=== PATIENT | female | born 1940 | race Caucasian/White ===

== ENCOUNTER 2016-07-03 18:18 | Inpatient (IN) | payer MEDICARE, OTHER ==
[~2016-07-03] VITALS: Ht 165.1 cm; Wt 105.1 kg
[2016-07-03 18:19] VITALS: BP 144/84; PULSE 101; RESP 15; TEMP 98.2; O2SAT 98
[2016-07-03] MEDS ORDERED: LOSA50TA PO (18:31)
[2016-07-03] MEDS ORDERED: ATOR40TA16 PO (18:31)
[2016-07-03] MEDS ORDERED: SYMB160A INH (18:31)
--- NOTE | 2016-07-03 18:49 | PD ---
HPI Chief Complaint: Complaint Time Seen by Provider: 18:47 Travel History International Travel<30 days: No Contact w/Intl Traveler<30days: No Traveled to known affect area: No History of Present Illness HPI 75-year-old female presents to the emergency department for evaluation of right low back pain and urinary symptoms that started 2 days ago. Patient reports urinary urgency and frequency as well as mild dysuria. She denies any fevers or chills. She does state she took one Cipro and then had dry heaves. Patient denies any constipation or diarrhea. She does report a history of hypertension , hyperlipidemia, frequent UTIs. Patient states this is her typical symptoms of UTI. Patient does report allergy to codeine and sulfa. PFSH Past Medical History Asthma: Yes High Cholesterol: Yes Hypertension: Yes Respiratory: Yes (ASTHMA) Tetanus Vaccination: > 5 Years Influenza Vaccination: No ?: Not Past Surgical History Hysterectomy: Yes Social History Alcohol Use: No Tobacco Use: No Substance Use: No Allergies-Medications (Allergen,Severity, Reaction): Coded Allergies: Codeine (Verified Allergy, Severe, DIZZINESS, 07/03/16) Sulfa (Verified Allergy, Severe, DIZZINESS, 07/03/16) Reported Meds & Prescriptions Reported Meds & Active Scripts Active Reported Atorvastatin (Atorvastatin Calcium) 40 Mg Tab 40 Mg PO HS Losartan (Losartan Potassium) 50 Mg Tab 50 Mg PO DAILY Symbicort Inh (Budesonide/Formoterol Fumarate) 160-4.5 Mcg/Act Aero 1 Puff INH Q12HR Review of Systems Except as stated in HPI: all other systems reviewed are Neg Physical Exam Narrative GENERAL: Well-developed well-nourished elderly female patient, ambulatory. Afebrile. SKIN: Warm and dry. HEAD: Normocephalic. Atraumatic. EYES: No scleral icterus. No injection or drainage. NECK: Supple, trachea midline. No JVD or lymphadenopathy. CARDIOVASCULAR: Regular rate and rhythm without murmurs, gallops, or rubs. RESPIRATORY: Breath sounds equal bilaterally. No accessory muscle use. Lung sounds are clear to auscultation. GASTROINTESTINAL: Abdomen soft, non-tender, nondistended. MUSCULOSKELETAL: No cyanosis, or edema. BACK: Nontender without obvious deformity. No CVA tenderness. Data Data Last Documented VS Vital Signs Date Time Temp Pulse Resp B/P Pulse Ox O2 Delivery O2 Flow Rate FiO2 2/4/17 20:58 86 17 137/78 99 Room Air 07/03/16 18:19 98.2 Orders Complete Blood Count With Diff (07/03/16 18:46) Comprehensive Metabolic Panel (07/03/16 18:46) Urinalysis - C+S If Indicated (07/03/16 18:46) Ct Abd/Pel W Iv Contrast(Rout) (07/03/16 ) Sodium Chlor 0.9% 1000 Ml Inj (Ns 1000 M (07/03/16 19:30) Blood Culture (07/03/16 19:23) Lactic Acid Sepsis Protocol (07/03/16 19:24) Urine Culture (07/03/16 06:50) Morphine Inj (Morphine Inj) (07/03/16 20:00) Ondansetron Inj (Zofran Inj) (07/03/16 20:00) Iohexol 350 Inj (Omnipaque 350 Inj) (07/03/16 20:16) Sodium Chlor 0.9% 1000 Ml Inj (Ns 1000 M (07/03/16 20:45) Piperacil-Tazo 4.5 Gm Premix (Zosyn 4.5 (07/03/16 20:31) Labs Laboratory Tests Test 07/03/16 07/03/16 06:50 19:45 White Blood Count 19.8 TH/MM3 Red Blood Count 4.15 MIL/MM3 Hemoglobin 12.9 GM/DL Hematocrit 37.2 % Mean Corpuscular Volume 89.7 FL Mean Corpuscular Hemoglobin 31.0 PG Mean Corpuscular Hemoglobin 34.5 % Concent Red Cell Distribution Width 13.1 % Platelet Count 243 TH/MM3 Mean Platelet Volume 9.8 FL Neutrophils (%) (Auto) 85.6 % Lymphocytes (%) (Auto) 5.7 % Monocytes (%) (Auto) 7.6 % Eosinophils (%) (Auto) 0.9 % Basophils (%) (Auto) 0.2 % Neutrophils # (Auto) 17.0 TH/MM3 Lymphocytes # (Auto) 1.1 TH/MM3 Monocytes # (Auto) 1.5 TH/MM3 Eosinophils # (Auto) 0.2 TH/MM3 Basophils # (Auto) 0.0 TH/MM3 CBC Comment DIFF FINAL Differential Comment Urine Color YELLOW Urine Turbidity HAZY Urine pH 5.5 Urine Specific [place] 1.021 Urine Protein 30 mg/dL Urine Glucose (UA) NEG mg/dL Urine Ketones NEG mg/dL Urine Occult Blood SMALL Urine Nitrite NEG Urine Bilirubin NEG Urine Urobilinogen LESS THAN 2.0 MG/DL Urine Leukocyte Esterase LARGE Urine RBC 12 /hpf Urine WBC /hpf Urine WBC Clumps FEW Urine Squamous Epithelial 1 /hpf Cells Urine Bacteria RARE /hpf Urine Hyaline Casts 1 /lpf Urine Mucus FEW /lpf Microscopic Urinalysis Comment CULTURE INDICATED Sodium Level 135 MEQ/L Potassium Level 3.6 MEQ/L Chloride Level 99 MEQ/L Carbon Dioxide Level 27.2 MEQ/L Anion Gap 9 MEQ/L Blood Urea Nitrogen 21 MG/DL Creatinine 1.20 MG/DL Estimat Glomerular Filtration 44 ML/MIN Rate Random Glucose 137 MG/DL Calcium Level 8.7 MG/DL Total Bilirubin 0.7 MG/DL Aspartate Amino Transf 29 U/L (AST/SGOT) Alanine Aminotransferase 43 U/L (ALT/SGPT) Alkaline Phosphatase 96 U/L Total Protein 7.8 GM/DL Albumin 3.7 GM/DL Lactic Acid Level 0.6 mmol/L MDM Medical Decision Making Medical Screen Exam Complete: Yes Emergency Medical Condition: Yes Medical Record Reviewed: Yes Interpretation(s) CT abdomen/pelvis - CONCLUSION: Slight decrease in enhancement of the right kidney relative to the left with some mild right perinephric stranding and mild dilatation of the right proximal and mid ureter. No definite calculus is identified. Differential diagnosis includes a right-sided pyelonephritis or possibly a mild obstructive uropathy secondary to a non-radiopaque calculus. Differential Diagnosis UTI versus pyelonephritis versus dysuria Narrative Course 75-year-old female presents to the emergency department for evaluation of urinary symptoms for 2 days. CBC, CMP are ordered and pending. UA is ordered and pending. CBC shows leukocytosis of 19.8, neutrophilia 85.6. CMP shows elevated B and 21/ 1.20, no acute abnormality. UA shows large leukocyte esterase, innumerable WBC , few wbc clumps. CT abdomen/pelvis with IV contrast is ordered and pending; blood cultures 1 is ordered and pending; lactic acid is ordered and pending. CT abdomen/pelvis shows llight decrease in enhancement of the right kidney relative to the left with some mild right perinephric stranding and mild dilatation of the right proximal and mid ureter. No definite calculus is identified. Differential diagnosis includes a right-sided pyelonephritis or possibly a mild obstructive uropathy secondary to a non-radiopaque calculus. Lactic acid is 0.6. Patient was given Zosyn 4.5gm IV. Dr. Bear accepted admission. Sepsis Criteria SIRS Criteria (2 or more): Heart rate over 90, WBC > 53451, < 4000 or > 10% bands Sepsis Criteria (SIRS+source): Infect source susp/known Diagnosis Primary Impression: Pyelonephritis Admitting Information Admitting Physician Requests: Admit Danica Serna Jul 03, 2016 18:49
[2016-07-03 18:56] VITALS: BP 134/76; PULSE 95; RESP 18; O2SAT 98
[2016-07-03 19:05] LABS: BASOPHIL % 0.2 % (0.0-2.0); EOSINOPHIL # 0.2 TH/MM3 (0-0.4); EOSINOPHIL % 0.9 % (0.0-4.0); HEMATOCRIT 37.2 % (35.0-46.0); HEMO FLAGS DIFF FINAL; LYMPH % 5.7 % (9.0-44.0); LYMPHOCYTE # 1.1 TH/MM3 (1.0-4.8); MEAN CELL VOLUME 89.7 FL (80.0-100.0); MEAN CORPUSCULAR HGB CONC 34.5 % (32.0-36.0); MONO % 7.6 % (0.0-8.0); NEUT % 85.6 % (16.0-70.0); PLATELET COUNT 243 TH/MM3 (150-450); RED BLOOD COUNT 4.15 MIL/MM3 (4.00-5.30); RED CELL DISTRIBUTION WIDTH 13.1 % (11.6-17.2); WHITE BLOOD COUNT 19.8 TH/MM3 (4.0-11.0)
[2016-07-03] MEDS ORDERED: SODIUM CHLOR 0.9% 1000 ML INJ 1,000 ML IV ONE ×2 (19:30→20:45)
[2016-07-03 19:32] LABS: BACTERIA, URINE RARE /hpf; BLOOD, URINE SMALL (NEG); COMMENT (UR) CULTURE INDICATED; CULTURE IF INDICATED CULTURE INDICATED; GLUCOSE,URINE NEG (NEG); HYALINE CAST, URINE 1 /lpf (RARE); KETONE, URINE NEG (NEG); MUCUS URINE FEW /lpf (OCC); NITRITE,URINE NEG (NEG); PH, URINE 5.5 (5.0-8.5); SQUAMOUS EPITHELIAL CELL URINE 1 /hpf (0-5); URINE COLOR YELLOW (YELLW/STRAW)
[2016-07-03 19:33] LABS: ANION GAP 9 MEQ/L (5-15); AST (GOT) 29 U/L (15-37); BICARBONATE 27.2 MEQ/L (21.0-32.0); BLOOD UREA NITROGEN 21 MG/DL (7-18); CHLORIDE 99 MEQ/L (98-107); GLOMERULAR FILTRATION RATE 44 ML/MIN (>89); POTASSIUM 3.6 MEQ/L (3.5-5.1); SODIUM (NA) 135 MEQ/L (136-145)
[2016-07-03 19:37] LABS: ALKALINE PHOSPHATASE 96 U/L (45-117); ALT (GPT) 43 U/L (10-53); TOTAL BILIRUBIN ADULT 0.7 MG/DL (0.2-1.0)
[2016-07-03] MEDS ORDERED: ONDANSETRON HCL 4 MG/2 ML VIAL IV PUSH ONE (20:00)
[2016-07-03] MEDS ORDERED: MORPHINE SULFATE 4 MG/ML INJ IV PUSH ONE (20:00)
[2016-07-03] MEDS ORDERED: IOHEXOL 350 MG/ML 10 ML VIAL (for RAD DIAG) IV ONE (20:16)
[2016-07-03] MEDS ORDERED: PIPERACIL-TAZO 4.5 GM PREMIX 100 ML IV STA (20:31)
[2016-07-03 20:58] VITALS: BP 137/78; PULSE 86; RESP 17; O2SAT 99
--- NOTE | 2016-07-03 21:23 | RADRPT ---
EXAM DATE/TIME: 07/03/2016 20:08 [place] COMPARISON: No previous studies available for comparison. INDICATIONS : Right lateral abdominal pain radiating to lower back with dysuria. IV CONTRAST: 90 cc Omnipaque 350 (iohexol) IV ORAL CONTRAST: No oral contrast ingested. RADIATION DOSE: 13.61 CTDIvol (mGy) MEDICAL HISTORY : Hypertension. Asthma. SURGICAL HISTORY : Hysterectomy. ENCOUNTER: Initial ACUITY: 1 day PAIN SCALE: 5/10 LOCATION: Right lateral TECHNIQUE: Volumetric scanning of the abdomen and pelvis was performed. Using automated exposure control and ad justment of the mA and/or kV according to patient size, radiation dose was kept as low as reasonably achievable to obtain optimal diagnostic quality images. FINDINGS: Limited bases are clear. Large hiatal hernia. Fatty liver. Spleen, adrenals, left kidney and pancreas unremarkable. 3.5 cm cyst lower pole right kidney. The right kidney also demonstrates some delayed c ontrast opacification with some right-sided perinephric stranding. The right ureter is mildly dilated in the proximal and midportion. The distal portion is not clearly seen but no definite ureteral calc ulus is identified. There is mild constipation. There is colonic diverticulosis without evidence for diverticulitis. No o bstruction, free fluid or free air. Small fat containing umbilical hernia. CONCLUSION: Slight decrease in enhancement of the right kidney relative to the left with some mild right perineph diony stranding and mild dilatation of the right proximal and mid ureter. No definite calculus is ident ified. Differential diagnosis includes a right-sided pyelonephritis or possibly a mild obstructive ur opathy secondary to a non-radiopaque calculus. Chad Tony MD on July 03, 2016 at 21:14 Board Certified Radiologist. This report was verified electronically.
--- NOTE | 2016-07-03 21:52 | HHI.HP ---
[facility] Admission Diagnosis pyelonephritis Diagnoses: (1) Sepsis Diagnosis: Principal (2) UTI (urinary tract infection) Diagnosis: Principal (3) Renal insufficiency Diagnosis: Principal (4) HTN (hypertension) Diagnosis: Principal Travel History International Travel<30 Days: No Contact w/Intl Traveler <30 Da: No Traveled to Known Affected Are: No History of Present Illness This is a 75-year-old female with a PMH of HTN, Hyperlipidemia and Asthma who is brought to the ER with complaints of right-sided back pain and dysuria x2 days. States symptoms similar to previous episodes of UTI. Denies fever, chills, nausea, vomiting or diarrhea. On arrival, BP 144/84, HR 101, O2 sat 98 % on RA, Afebrile. WBC 19.8. Creatinine 1.20, no previous/for comparison. UA with UTI. CT Abd/Pelvis w/ decreased enhancement of right kidney relative to the left with mild right perinephric stranding and mild dilatation of right proximal and mid ureter, likely pyelonephritis vs obstructive uropathy from non- radiopaque stone. S/p Blood Cultures, Zosyn IV in ER. Review of Systems Other ROS: 14 point review of systems otherwise negative. Past Family Social History Past Medical History PMH: HTN, Hyperlipidemia and Asthma Past Surgical History PAST SURGICAL HISTORY: Hysterectomy Allergies: Coded Allergies: Codeine (Verified Allergy, Severe, DIZZINESS, 07/03/16) Sulfa (Verified Allergy, Severe, DIZZINESS, 07/03/16) Family History PAST FAMILY HISTORY: Reviewed. No h/o DM or CAD Social History PAST SOCIAL HISTORY: Negative for alcohol, tobacco or drugs. Physical Exam Vital Signs Vital Signs Date Time Temp Pulse Resp B/P Pulse Ox O2 Delivery O2 Flow Rate FiO2 07/03/16 20:58 86 17 137/78 99 Room Air 07/03/16 18:56 95 18 134/76 98 Room Air 07/03/16 18:19 98.2 101 15 144/84 98 Physical Exam PE: GENERAL: Extremely pleasant elderly white female in no acute distress. HEENT: PERRLA, EOMI. No scleral icterus or conjunctival pallor. No lid lag or facial droop. CARDIOVASCULAR: Regular rate and rhythm. No obvious murmurs to auscultation. No chest tenderness to palpation. RESPIRATORY: No obvious rhonchi or wheezing. Clear to auscultation. Breath sounds equal bilaterally. GASTROINTESTINAL: Abdomen soft, non-tender, nondistended. BS normal. MUSCULOSKELETAL: Extremities without clubbing, cyanosis, or edema. No obvious deformities. NEUROLOGICAL: Awake, alert and oriented x4. No focal neurologic deficits. Moving both upper and lower extremities spontaneously. Laboratory Laboratory Tests Test 07/03/16 07/03/16 06:50 19:45 White Blood Count 19.8 Red Blood Count 4.15 Hemoglobin 12.9 Hematocrit 37.2 Mean Corpuscular Volume 89.7 Mean Corpuscular Hemoglobin 31.0 Mean Corpuscular Hemoglobin 34.5 Concent Red Cell Distribution Width 13.1 Platelet Count 243 Mean Platelet Volume 9.8 Neutrophils (%) (Auto) 85.6 Lymphocytes (%) (Auto) 5.7 Monocytes (%) (Auto) 7.6 Eosinophils (%) (Auto) 0.9 Basophils (%) (Auto) 0.2 Neutrophils # (Auto) 17.0 Lymphocytes # (Auto) 1.1 Monocytes # (Auto) 1.5 Eosinophils # (Auto) 0.2 Basophils # (Auto) 0.0 CBC Comment DIFF FINAL Differential Comment Urine Color YELLOW Urine Turbidity HAZY Urine pH 5.5 Urine Specific [place] 1.021 Urine Protein 30 Urine Glucose (UA) NEG Urine Ketones NEG Urine Occult Blood SMALL Urine Nitrite NEG Urine Bilirubin NEG Urine Urobilinogen LESS THAN 2.0 Urine Leukocyte Esterase LARGE Urine RBC 12 Urine WBC Urine WBC Clumps FEW Urine Squamous Epithelial 1 Cells Urine Bacteria RARE Urine Hyaline Casts 1 Urine Mucus FEW Microscopic Urinalysis Comment CULTURE INDICATED Sodium Level 135 Potassium Level 3.6 Chloride Level 99 Carbon Dioxide Level 27.2 Anion Gap 9 Blood Urea Nitrogen 21 Creatinine 1.20 Estimat Glomerular Filtration 44 Rate Random Glucose 137 Calcium Level 8.7 Total Bilirubin 0.7 Aspartate Amino Transf 29 (AST/SGOT) Alanine Aminotransferase 43 (ALT/SGPT) Alkaline Phosphatase 96 Total Protein 7.8 Albumin 3.7 Lactic Acid Level 0.6 Date/Time Procedure Status Source Growth 07/03/16 19:45 Aerobic Blood Culture Received Blood Peripheral Pending 07/03/16 19:45 Anaerobic Blood Culture Received Blood Peripheral Pending 07/03/16 06:50 Urine Culture Received Urine Clean Catch Pending Result Diagram: 07/03/1650 07/03/16649 Assessment and Plan Problem List: (1) Sepsis ICD Code: A41.9 Status: Acute (2) UTI (urinary tract infection) ICD Code: N39.0 Status: Acute (3) Renal insufficiency ICD Code: N28.9 Status: Acute (4) HTN (hypertension) ICD Code: I10 Status: Acute Assessment and Plan A/P: 1. Sepsis: HR 101, WBC 19.8, Source-UTI. S/p Blood/Urine Cultures, Zosyn IV in ER. Follow up cultures, continue IV Abx, IVF for hydration. 2. UTI: U/a w/ UTI. CT Abd/Pelvis w/ right perinephric stranding and mild dilatation of right proximal and mid ureter, likely pyelonephritis versus mild obstructive uropathy due to non-radiopaque calculus, images reviewed by me. Continue treatment as above. 3. Renal Insufficiency: Creatinine 1.20, no previous labs for comparison, presumably new. IVF, repeat labs in am. 4. HTN: BP 130-140's, will monitor. 5. DVT Prophylaxis: SCD/Teds. 6. Social work for d/c planning as needed. 7. Case discussed w/ ER physician at length Physician Certification 2 Midnight Certification Type: Admission for Inpatient Services Order for Inpatient Services The services are ordered in accordance with Medicare regulations or non- Medicare payer requirements, as applicable. In the case of services not specified as inpatient-only, they are appropriately provided as inpatient services in accordance with the 2-midnight benchmark. Estimated LOS (days): 2 days is the estimated time the patient will need to remain in the hospital, assuming treatment plan goals are met and no additional complications. Post-Hospital Plan: Not yet determined Problem Qualifiers (1) Sepsis: Qualified Code: A41.9 - Sepsis, due to unspecified organism (2) UTI (urinary tract infection): Qualified Code: N39.0 - Urinary tract infection without hematuria, site unspecified Azalea Bear MD Jul 03, 2016 21:52
[2016-07-03] MEDS ORDERED: ONDANSETRON HCL 4 MG/2 ML VIAL IVP PRN (22:00)
[2016-07-03] MEDS ORDERED: BISACODYL 10 MG SUPP PR PRN (22:00)
[2016-07-03] MEDS ORDERED: SODIUM CHLORIDE 0.9% FLUSH 5 ML FLUSH FLUSH PRN (22:00)
[2016-07-03] MEDS ORDERED: MORPHINE SULFATE 4 MG/ML INJ IV PRN (22:00)
--- NOTE | 2016-07-03 23:21 | PD ---
Physical Exam Narrative General: No apparent distress, well appearing ENT: mmm Neck: trachea is midline Cardiovascular: Regular rate and rhythm Lungs: No increased respiratory effort noted Neuro: Awake, motor and sensation grossly intact, normal speech Data Data Last Documented VS Vital Signs Date Time Temp Pulse Resp B/P Pulse Ox O2 Delivery O2 Flow Rate FiO2 07/03/16 20:58 86 17 137/78 99 Room Air 07/03/16 18:19 98.2 Orders Complete Blood Count With Diff (07/03/16 18:46) Comprehensive Metabolic Panel (07/03/16 18:46) Urinalysis - C+S If Indicated (07/03/16 18:46) Ct Abd/Pel W Iv Contrast(Rout) (07/03/16 ) Sodium Chlor 0.9% 1000 Ml Inj (Ns 1000 M (07/03/16 19:30) Blood Culture (07/03/16 19:23) Lactic Acid Sepsis Protocol (07/03/16 19:24) Urine Culture (07/03/16 06:50) Morphine Inj (Morphine Inj) (07/03/16 20:00) Ondansetron Inj (Zofran Inj) (07/03/16 20:00) Iohexol 350 Inj (Omnipaque 350 Inj) (07/03/16 20:16) Sodium Chlor 0.9% 1000 Ml Inj (Ns 1000 M (07/03/16 20:45) Piperacil-Tazo 4.5 Gm Premix (Zosyn 4.5 (07/03/16 20:31) Admit Order (Ed Use Only) (07/03/16 21:42) Labs Laboratory Tests Test 07/03/16 07/03/16 06:50 19:45 White Blood Count 19.8 TH/MM3 Red Blood Count 4.15 MIL/MM3 Hemoglobin 12.9 GM/DL Hematocrit 37.2 % Mean Corpuscular Volume 89.7 FL Mean Corpuscular Hemoglobin 31.0 PG Mean Corpuscular Hemoglobin 34.5 % Concent Red Cell Distribution Width 13.1 % Platelet Count 243 TH/MM3 Mean Platelet Volume 9.8 FL Neutrophils (%) (Auto) 85.6 % Lymphocytes (%) (Auto) 5.7 % Monocytes (%) (Auto) 7.6 % Eosinophils (%) (Auto) 0.9 % Basophils (%) (Auto) 0.2 % Neutrophils # (Auto) 17.0 TH/MM3 Lymphocytes # (Auto) 1.1 TH/MM3 Monocytes # (Auto) 1.5 TH/MM3 Eosinophils # (Auto) 0.2 TH/MM3 Basophils # (Auto) 0.0 TH/MM3 CBC Comment DIFF FINAL Differential Comment Urine Color YELLOW Urine Turbidity HAZY Urine pH 5.5 Urine Specific [place] 1.021 Urine Protein 30 mg/dL Urine Glucose (UA) NEG mg/dL Urine Ketones NEG mg/dL Urine Occult Blood SMALL Urine Nitrite NEG Urine Bilirubin NEG Urine Urobilinogen LESS THAN 2.0 MG/DL Urine Leukocyte Esterase LARGE Urine RBC 12 /hpf Urine WBC /hpf Urine WBC Clumps FEW Urine Squamous Epithelial 1 /hpf Cells Urine Bacteria RARE /hpf Urine Hyaline Casts 1 /lpf Urine Mucus FEW /lpf Microscopic Urinalysis Comment CULTURE INDICATED Sodium Level 135 MEQ/L Potassium Level 3.6 MEQ/L Chloride Level 99 MEQ/L Carbon Dioxide Level 27.2 MEQ/L Anion Gap 9 MEQ/L Blood Urea Nitrogen 21 MG/DL Creatinine 1.20 MG/DL Estimat Glomerular Filtration 44 ML/MIN Rate Random Glucose 137 MG/DL Calcium Level 8.7 MG/DL Total Bilirubin 0.7 MG/DL Aspartate Amino Transf 29 U/L (AST/SGOT) Alanine Aminotransferase 43 U/L (ALT/SGPT) Alkaline Phosphatase 96 U/L Total Protein 7.8 GM/DL Albumin 3.7 GM/DL Lactic Acid Level 0.6 mmol/L [facility] Supervised Visit with AVERY: Yes Interpretation(s) CBC & BMP Diagram 07/03/16 06:50 Last 24 hours Impressions Abdomen/Pelvis CT 07/03/16 0000 Signed Impressions: Service Date/Time: Sunday, July 03, 2016 20:08 - CONCLUSION: Slight decrease in enhancement of the right kidney relative to the left with some mild right perinephric stranding and mild dilatation of the right proximal and mid ureter. No definite calculus is identified. Differential diagnosis includes a right-sided pyelonephritis or possibly a mild obstructive uropathy secondary to a non-radiopaque calculus. Chad Tony MD ua with uti Narrative Course I, Dr. simons, have reviewed the advance practice practitioner's documentation and am in agreement, met with the patient face to face, made the diagnosis, and the medical decision making was done by me. *My assessment and Findings: 75-year-old female presents with back pain and nausea. Findings show right sided pyelonephritis with sepsis with normal lactate with mild renal insufficiency. Zosyn was given for antibiotic coverage and IV fluid boluses were ordered, Patient updated and agrees to admission and questions were answered Sepsis Criteria SIRS Criteria (2 or more): Heart rate over 90, WBC > 54929, < 4000 or > 10% bands Sepsis Criteria (SIRS+source): Infect source susp/known Diagnosis Primary Impression: Pyelonephritis Additional Impressions: Renal insufficiency Sepsis Qualified Code: A41.9 - Sepsis, due to unspecified organism UTI (urinary tract infection) Qualified Code: N39.0 - Urinary tract infection without hematuria, site unspecified Admitting Information Admitting Physician Requests: Admit Usha Simons MD Jul 03, 2016 23:21
[2016-07-03 23:33] VITALS: BP 152/68; PULSE 95; RESP 20; TEMP 98; O2SAT 96
[2016-07-03] MEDS: SODIUM CHLOR 0.9% 1000 ML INJ 1,000 ML IV SCH (23:45)
[2016-07-04] VITALS (9 sets, daily range): BP systolic 115–144; BP diastolic 62–84; PULSE 80–100; RESP 18–20; TEMP 96.9–98.8; O2SAT 93–95
[2016-07-04 05:30] LABS: AUTOMATED NEUTROPHIL # 14.1 TH/MM3 (1.8-7.7); BASOPHIL % 0.2 % (0.0-2.0); EOSINOPHIL # 0.1 TH/MM3 (0-0.4); EOSINOPHIL % 0.8 % (0.0-4.0); HEMATOCRIT 36.6 % (35.0-46.0); HEMO FLAGS DIFF FINAL; LYMPH % 6.1 % (9.0-44.0); MEAN CELL VOLUME 91.2 FL (80.0-100.0); MEAN CORPUSCULAR HEMOGLOBIN 30.7 PG (27.0-34.0); MEAN CORPUSCULAR HGB CONC 33.7 % (32.0-36.0); MONO % 8.4 % (0.0-8.0); NEUT % 84.5 % (16.0-70.0); PLATELET COUNT 231 TH/MM3 (150-450); RED BLOOD COUNT 4.02 MIL/MM3 (4.00-5.30); RED CELL DISTRIBUTION WIDTH 13.3 % (11.6-17.2); WHITE BLOOD COUNT 16.7 TH/MM3 (4.0-11.0)
[2016-07-04 05:38] LABS: ALKALINE PHOSPHATASE 85 U/L (45-117); ALT (GPT) 40 U/L (10-53); ANION GAP 6 MEQ/L (5-15); AST (GOT) 24 U/L (15-37); BLOOD UREA NITROGEN 13 MG/DL (7-18); CHLORIDE 105 MEQ/L (98-107); GLOMERULAR FILTRATION RATE 52 ML/MIN (>89); POTASSIUM 4.4 MEQ/L (3.5-5.1); SODIUM (NA) 137 MEQ/L (136-145); TOTAL BILIRUBIN ADULT 0.6 MG/DL (0.2-1.0)
[2016-07-04] MEDS ORDERED: cefTRIAXone INJ 1,000 MG in SODIUM CHLORIDE 0.9% INJ 100 ML IV SCH (09:00)
[2016-07-04] MEDS: SODIUM CHLORIDE 0.9% FLUSH 5 ML FLUSH FLUSH SCH ×2 (09:31→21:00)
[2016-07-04] MEDS: ACETAMINOPHEN 325 MG TAB PO PRN ×2 (09:36→18:12)
[2016-07-04] MEDS: BUDESONIDE-FORMOTEROL 160/4.5 MCG INHALER INH SCH ×2 (14:40→21:56)
[2016-07-04] MEDS: PIPERACIL-TAZO 3.375 GM PREMIX 50 ML IV SCH ×2 (14:40→18:12)
--- NOTE | 2016-07-04 15:11 | PD.CONS ---
HPI Service Urology Consult Requested By Reason for Consult Mild right hydronephrosis Primary Care Physician No Primary Care Physician Diagnosis: (1) Sepsis ICD Code: A41.9 (2) UTI (urinary tract infection) ICD Code: N39.0 (3) Renal insufficiency ICD Code: N28.9 (4) HTN (hypertension) ICD Code: I10 History of Present Illness 75-year-old female with no prior history of renal lithiasis who presented to the emergency room with symptoms of right flank pain and dysuria 2 days. Denies having any fevers. Denies gross hematuria. Preliminary evaluation in the ER included a CT scan that demonstrated mild hydronephrosis of the right kidney as well as diminished enhancement of the right kidney consistent with pyelonephritis. No definitive obstructing stones were seen. White blood cell count was elevated at 19.8. At the time of consultation the patient reported that she felt remarkably better and was anxious to go home. She reports that she is from [place] and is on vacation here in [place]. Review of Systems Constitutional: DENIES: Fever, Chills Gastrointestinal: DENIES: Abdominal pain Genitourinary: COMPLAINS OF: Dysuria, DENIES: Hematuria Musculoskeletal: COMPLAINS OF: Back pain (recent history right flank pain now resolved) Other All other systems negative Past Family Social History Past Medical History Asthma Hypertension Hyperlipidemia Past Surgical History Status post hysterectomy Reported Medications Refer to EMR Allergies: Coded Allergies: Codeine (Verified Allergy, Severe, DIZZINESS, 07/03/16) Sulfa (Verified Allergy, Severe, DIZZINESS, 07/03/16) Active Ordered Medications Refer to EMR Family History Reviewed and noncontributory Social History Denies tobacco, alcohol or intravenous drug abuse Physical Exam Vital Signs Vital Signs Date Time Temp Pulse Resp B/P Pulse Ox O2 Delivery O2 Flow Rate FiO2 07/04/16 14:30 96.9 84 20 115/62 94 07/04/16 09:43 97 07/04/16 08:00 98.8 88 20 131/73 94 07/04/16 07:37 98.2 92 20 144/66 94 07/04/16 04:23 98.0 100 20 144/84 95 07/04/16 00:00 98 07/03/16 23:33 98.0 95 20 152/68 96 07/03/16 20:58 86 17 137/78 99 Room Air 07/03/16 18:56 95 18 134/76 98 Room Air 07/03/16 18:19 98.2 101 15 144/84 98 Physical Exam GENERAL: This is a well-nourished, well-developed patient, in no apparent distress. SKIN: No rashes, ecchymoses or lesions. Cool and dry. HEAD: Atraumatic. Normocephalic. No temporal or scalp tenderness. EYES: Pupils equal round and reactive. Extraocular motions intact. No scleral icterus. No injection or drainage. ENT: Nose without bleeding, purulent drainage or septal hematoma. Throat without erythema, tonsillar hypertrophy or exudate. Uvula midline. Airway patent. NECK: Trachea midline. No JVD or lymphadenopathy. Supple, nontender, no meningeal signs. GASTROINTESTINAL: Abdomen soft, non-tender, nondistended. No hepato-splenomegaly , or palpable masses. No guarding. : No CVA tenderness MUSCULOSKELETAL: Extremities without clubbing, cyanosis, or edema. No joint tenderness, effusion, or edema noted. No calf tenderness. Negative Homans sign bilaterally. NEUROLOGICAL: Awake and alert. Cranial nerves II through XII intact. Motor and sensory grossly within normal limits. Five out of 5 muscle strength in all muscle groups. Normal speech. Laboratory Laboratory Tests Test 07/03/16 07/04/16 19:45 05:00 Lactic Acid Level 0.6 White Blood Count 16.7 Red Blood Count 4.02 Hemoglobin 12.3 Hematocrit 36.6 Mean Corpuscular Volume 91.2 Mean Corpuscular Hemoglobin 30.7 Mean Corpuscular Hemoglobin 33.7 Concent Red Cell Distribution Width 13.3 Platelet Count 231 Mean Platelet Volume 9.7 Neutrophils (%) (Auto) 84.5 Lymphocytes (%) (Auto) 6.1 Monocytes (%) (Auto) 8.4 Eosinophils (%) (Auto) 0.8 Basophils (%) (Auto) 0.2 Neutrophils # (Auto) 14.1 Lymphocytes # (Auto) 1.0 Monocytes # (Auto) 1.4 Eosinophils # (Auto) 0.1 Basophils # (Auto) 0.0 CBC Comment DIFF FINAL Differential Comment Sodium Level 137 Potassium Level 4.4 Chloride Level 105 Carbon Dioxide Level 26.0 Anion Gap 6 Blood Urea Nitrogen 13 Creatinine 1.03 Estimat Glomerular Filtration 52 Rate Random Glucose 100 Calcium Level 8.3 Total Bilirubin 0.6 Aspartate Amino Transf 24 (AST/SGOT) Alanine Aminotransferase 40 (ALT/SGPT) Alkaline Phosphatase 85 Total Protein 7.2 Albumin 3.3 Date/Time Procedure Status Source Growth 07/03/16 19:45 Aerobic Blood Culture - Preliminary Resulted Blood Peripheral NO GROWTH IN 1 DAY 07/03/16 19:45 Anaerobic Blood Culture - Preliminary Resulted Blood Peripheral NO GROWTH IN 1 DAY 07/03/16 06:50 Urine Culture - Preliminary Resulted Urine Clean Catch IMMATURE GROWTH - REINCUBATE Result Diagram: 07/04/16 0500 07/04/[address] scan with findings as outlined above Assessment and Plan Assessment and Plan Urologic impression: #1 mild right hydronephrosis with pyelonephritis possibly related to recent stone passage #2 clinically improved since admission Recommendations: #1 discharge patient home on oral antibiotics when medically stable #2 advised keeping patient on oral antibiotics for at least 2 weeks #3 patient advised to follow up with her primary care physician back home in [place] when she returns to the area. Problem Qualifiers (1) Sepsis: Qualified Code: A41.9 - Sepsis, due to unspecified organism (2) UTI (urinary tract infection): Qualified Code: N39.0 - Urinary tract infection without hematuria, site unspecified Jey Loya MD Jul 04, 2016 15:11
--- NOTE | 2016-07-04 17:34 | HHI.PR ---
Subjective Remarks Patient seen this morning around 10:30 AM. Says she feels well. Denies any chest pain or shortness of breath. Denies any back pain or urinary pain. Says she feels like going home. Says that dysuria has resolved. Objective Vital Signs Date Time Temp Pulse Resp B/P Pulse Ox O2 Delivery O2 Flow Rate FiO2 07/04/16 14:30 96.9 84 20 115/62 94 07/04/16 09:43 97 07/04/16 08:00 98.8 88 20 131/73 94 07/04/16 07:37 98.2 92 20 144/66 94 07/04/16 04:23 98.0 100 20 144/84 95 07/04/16 00:00 98 07/03/16 23:33 98.0 95 20 152/68 96 07/03/16 20:58 86 17 137/78 99 Room Air 07/03/16 18:56 95 18 134/76 98 Room Air 07/03/16 18:19 98.2 101 15 144/84 98 Result Diagram: 07/04/16 0500 07/04/16 0500 Imaging Last Impressions Abdomen/Pelvis CT 07/03/16 0000 Signed Impressions: Service Date/Time: Sunday, July 03, 2016 20:08 - CONCLUSION: Slight decrease in enhancement of the right kidney relative to the left with some mild right perinephric stranding and mild dilatation of the right proximal and mid ureter. No definite calculus is identified. Differential diagnosis includes a right-sided pyelonephritis or possibly a mild obstructive uropathy secondary to a non-radiopaque calculus. Chad Tony MD Objective Remarks GENERAL: Patient lying down in bed. Appears comfortable. Alert and oriented 3. SKIN: Warm and dry. HEAD: Normocephalic. EYES: No scleral icterus. No injection or drainage. NECK: Supple, trachea midline. No JVD or lymphadenopathy. CARDIOVASCULAR: Regular rate and rhythm without murmurs, gallops, or rubs. RESPIRATORY: Breath sounds equal bilaterally. No accessory muscle use. GASTROINTESTINAL: Abdomen soft, non-tender, nondistended. MUSCULOSKELETAL: No cyanosis, or edema. BACK: Nontender without obvious deformity. No CVA tenderness. A/P Assessment and Plan Sepsis. Leukocytosis. Tachycardia. Improving. -Pyelonephritis on CT abdomen. 07/04-Initially managed with ceftriaxone, however secondary to mild hydronephrosis , have started patient on Zosyn. -Follow up urine cultures //Pyelonephritis Follow-up urine cultures. -07/04. Due to hydronephrosis on CT abdomen. Consulted urology. Urology recommends treatment with by mouth antibiotics at discharge for at least 2 week course. Renal insufficiency. Creatinine 1.2 on admission. Improving. Continue to monitor. Hypertension. Blood pressures acceptable. Continue to monitor. Prophylaxis. SCDs/teds. Add heparin acute. Discharge Planning When sepsis has resolved, and urine culture has returned. Mata Patino MD Jul 04, 2016 17:34
[2016-07-04] MEDS: ATORVASTATIN 40 MG TAB PO SCH (21:56)
[2016-07-04] MEDS: HEPARIN SODIUM - SQ 10,000 UNITS/ML VIAL SQ SCH (21:57)
[2016-07-04] MEDS: SODIUM CHLOR 0.9% 1000 ML INJ 1,000 ML IV SCH (22:04)
[2016-07-05] VITALS (8 sets, daily range): BP systolic 121–141; BP diastolic 58–72; PULSE 77–98; RESP 18–20; TEMP 96.2–98.9; O2SAT 93–95
[2016-07-05] MEDS: SODIUM CHLOR 0.9% 1000 ML INJ 1,000 ML IV SCH ×2 (01:19→17:26)
[2016-07-05] MEDS: PIPERACIL-TAZO 3.375 GM PREMIX 50 ML IV SCH ×4 (01:20→17:26)
[2016-07-05] MEDS: SODIUM CHLORIDE 0.9% FLUSH 5 ML FLUSH FLUSH SCH ×2 (08:53→20:21)
[2016-07-05] MEDS: BUDESONIDE-FORMOTEROL 160/4.5 MCG INHALER INH SCH ×2 (08:54→20:18)
[2016-07-05] MEDS: HEPARIN SODIUM - SQ 10,000 UNITS/ML VIAL SQ SCH ×2 (08:54→20:16)
[2016-07-05] MEDS: ACETAMINOPHEN 325 MG TAB PO PRN (12:41)
[2016-07-05 15:57] LABS: AUTOMATED NEUTROPHIL # 9.1 TH/MM3 (1.8-7.7); BASOPHIL % 0.4 % (0.0-2.0); EOSINOPHIL # 0.1 TH/MM3 (0-0.4); EOSINOPHIL % 0.9 % (0.0-4.0); HEMATOCRIT 31.4 % (35.0-46.0); HEMO FLAGS DIFF FINAL; MEAN CELL VOLUME 89.6 FL (80.0-100.0); MEAN CORPUSCULAR HEMOGLOBIN 30.2 PG (27.0-34.0); MEAN CORPUSCULAR HGB CONC 33.7 % (32.0-36.0); MONO % 9.1 % (0.0-8.0); NEUT % 80.6 % (16.0-70.0); PLATELET COUNT 208 TH/MM3 (150-450); RED BLOOD COUNT 3.51 MIL/MM3 (4.00-5.30); WHITE BLOOD COUNT 11.3 TH/MM3 (4.0-11.0)
[2016-07-05 16:16] LABS: BLOOD, URINE TRACE (NEG); COMMENT (UR) CULTURE INDICATED; CULTURE IF INDICATED CULTURE INDICATED; GLUCOSE,URINE NEG (NEG); KETONE, URINE NEG (NEG); MUCUS URINE FEW /lpf (OCC); NITRITE,URINE NEG (NEG); SQUAMOUS EPITHELIAL CELL URINE <1 /hpf (0-5); URINE COLOR YELLOW (YELLW/STRAW)
[2016-07-05 16:34] LABS: BICARBONATE 22.9 MEQ/L (21.0-32.0); POTASSIUM 3.6 MEQ/L (3.5-5.1)
[2016-07-05] MEDS: ATORVASTATIN 40 MG TAB PO SCH (20:17)
[2016-07-06] VITALS (8 sets, daily range): BP systolic 119–142; BP diastolic 68–85; PULSE 99–113; RESP 16–20; TEMP 96.2–100; O2SAT 90–96
[2016-07-06] MEDS: SODIUM CHLOR 0.9% 1000 ML INJ 1,000 ML IV SCH (00:09)
[2016-07-06] MEDS: PIPERACIL-TAZO 3.375 GM PREMIX 50 ML IV SCH ×2 (00:36→06:34)
[2016-07-06] MEDS ORDERED: RESP: ALBUTEROL 2.5 MG/IPRATROPIUM 0.5 MG NEB (PRN) NEB (01:00)
[2016-07-06] MEDS ORDERED: Vancomycin Consult Pharmacy 1 EA OTHER SCH (01:15)
--- NOTE | 2016-07-06 01:41 | RADRPT ---
EXAM DATE/TIME: 07/06/2016 01:18 [facility] COMPARISON: No previous studies available for comparison. INDICATIONS : Cough. MEDICAL HISTORY : Hypertension. Asthma SURGICAL HISTORY : Hysterectomy. ENCOUNTER: Initial ACUITY: 3 days PAIN SCORE: 0/10 LOCATION: Bilateral chest FINDINGS: Cardiomegaly. Clear lungs. Degenerative changes of the spine. EKG leads are present. CONCLUSION: No acute disease. David Aguilar MD on July 06, 2016 at 1:39 Board Certified Radiologist. This report was verified electronically.
[2016-07-06 02:32] LABS: BASOPHIL # 0.1 TH/MM3 (0-0.2); BASOPHIL % 0.7 % (0.0-2.0); EOSINOPHIL % 0.1 % (0.0-4.0); HEMATOCRIT 30.3 % (35.0-46.0); HEMO FLAGS DIFF FINAL; LYMPH % 5.1 % (9.0-44.0); LYMPHOCYTE # 0.7 TH/MM3 (1.0-4.8); MEAN CELL VOLUME 88.3 FL (80.0-100.0); MEAN CORPUSCULAR HEMOGLOBIN 30.8 PG (27.0-34.0); MEAN CORPUSCULAR HGB CONC 34.8 % (32.0-36.0); NEUT % 85.1 % (16.0-70.0); PLATELET COUNT 208 TH/MM3 (150-450); RED BLOOD COUNT 3.43 MIL/MM3 (4.00-5.30); RED CELL DISTRIBUTION WIDTH 12.9 % (11.6-17.2)
[2016-07-06 02:51] LABS: BICARBONATE 21.1 MEQ/L (21.0-32.0); POTASSIUM 3.6 MEQ/L (3.5-5.1)
[2016-07-06] MEDS ORDERED: VANCOMYCIN INJ 1,600 MG in SODIUM CHLORID 0.9% 500 ML INJ 500 ML IV SCH (03:00)
[2016-07-06] MEDS: ACETAMINOPHEN 325 MG TAB PO PRN (06:37)
--- NOTE | 2016-07-06 06:55 | HHI.PR ---
Subjective Remarks Date of service 07/05/16. Patient seen the morning of 07/05/16 Patient says she feels well. Denies any chest pain or shortness breath. Denies any flank pain. Denies any burning with urination. She says she does feel like she is getting hot flashes, which she does not usually get, however no fevers recorded. Objective Vital Signs Date Time Temp Pulse Resp B/P Pulse Ox O2 Delivery O2 Flow Rate FiO2 07/06/16 04:00 97.8 105 18 142/85 93 07/06/16 01:26 96 Nasal Cannula 2.00 07/06/16 00:51 110 93 07/06/16 00:00 100.0 113 20 132/68 90 07/05/16 20:11 91 07/05/16 20:00 97.1 98 20 141/66 95 07/05/16 17:25 16 07/05/16 15:30 96.2 77 20 128/62 93 07/05/16 11:50 98.9 84 20 121/58 93 07/05/16 09:20 93 07/05/16 07:50 96.4 82 20 131/68 93 I/O 07/05/16 07/05/16 07/05/16 07/06/16 07/06/16 07/06/16 07:00 15:00 23:00 07:00 15:00 23:00 Intake Total 985 ml 480 ml 1555 ml Output Total 1200 ml 600 ml 850 ml 1400 ml Balance -215 ml -120 ml -850 ml 155 ml Intake Oral 240 ml 480 ml IV Total 745 ml 1555 ml Output Urine Total 1200 ml 600 ml 850 ml 1400 ml # Bowel Movements 1 1 2 Result Diagram: 07/06/1621307/06/164 Objective Remarks GENERAL: Patient lying down in bed. Appears comfortable. Alert and oriented 3. no change from yesterday. SKIN: Warm and dry.patient does appear rather flushed on exam. HEAD: Normocephalic. EYES: No scleral icterus. No injection or drainage. NECK: Supple, trachea midline. No JVD or lymphadenopathy. CARDIOVASCULAR: Regular rate and rhythm without murmurs, gallops, or rubs. RESPIRATORY: Breath sounds equal bilaterally. No accessory muscle use. GASTROINTESTINAL: Abdomen soft, non-tender, nondistended. MUSCULOSKELETAL: No cyanosis, or edema. BACK: Nontender without obvious deformity. No CVA tenderness. A/P Assessment and Plan === 07/05/16 Urine culture with mixed iasuro. White count still elevated, although improving. Given that patient had pyelonephritis, and we do not have a valid culture, will Repeat urinalysis. Sepsis. Leukocytosis. Tachycardia. Improving. -Pyelonephritis on CT abdomen. 07/04-Initially managed with ceftriaxone, however secondary to mild hydronephrosis , have started patient on Zosyn. -Follow up repeat urine cultures //Pyelonephritis Follow-up urine cultures. -07/04. Due to hydronephrosis on CT abdomen. Consulted urology. Urology recommends treatment with by mouth antibiotics at discharge for at least 2 week course. -07/05. Repeat urinalysis. Renal insufficiency. Creatinine 1.2 on admission. Improving. Continue to monitor. Hypertension. Blood pressures acceptable. Continue to monitor. Prophylaxis. SCDs/teds. Add heparin acute. Discharge Planning When sepsis has resolved, and repeat urine culture has returned. Mata Patino MD Jul 06, 2016 06:55
[2016-07-06 08:02] LABS: AUTOMATED NEUTROPHIL # 11.3 TH/MM3 (1.8-7.7); BASOPHIL % 0.2 % (0.0-2.0); EOSINOPHIL % 0.3 % (0.0-4.0); HEMATOCRIT 31.2 % (35.0-46.0); HEMO FLAGS DIFF FINAL; LYMPH % 5.7 % (9.0-44.0); LYMPHOCYTE # 0.8 TH/MM3 (1.0-4.8); MEAN CORPUSCULAR HEMOGLOBIN 29.8 PG (27.0-34.0); MEAN CORPUSCULAR HGB CONC 33.5 % (32.0-36.0); MONO % 9.3 % (0.0-8.0); NEUT % 84.5 % (16.0-70.0); PLATELET COUNT 215 TH/MM3 (150-450); RED BLOOD COUNT 3.51 MIL/MM3 (4.00-5.30); RED CELL DISTRIBUTION WIDTH 13.1 % (11.6-17.2); WHITE BLOOD COUNT 13.4 TH/MM3 (4.0-11.0)
[2016-07-06] MEDS: HEPARIN SODIUM - SQ 10,000 UNITS/ML VIAL SQ SCH (08:03)
[2016-07-06] MEDS: BUDESONIDE-FORMOTEROL 160/4.5 MCG INHALER INH SCH (08:03)
[2016-07-06] MEDS: SODIUM CHLORIDE 0.9% FLUSH 5 ML FLUSH FLUSH SCH (08:03)
[2016-07-06 08:28] LABS: BICARBONATE 20.6 MEQ/L (21.0-32.0); POTASSIUM 3.5 MEQ/L (3.5-5.1)
[2016-07-06] MEDS ORDERED: CIPR500T2 PO (09:51)
--- NOTE | 2016-07-06 09:58 | HHI.PR ---
Subjective Remarks Patient says she is feeling well. Denies any chest pain or shortness of breath. She does snore at night, and has required oxygen at night, however not during the day. Denies any nausea or vomiting. Good appetite. Feels like going home. She promises to follow up with a primary care doctor to go over results of urine culture. Patient has had a nonproductive cough during admission, however this is better today. She denies any shortness of breath. Objective Vital Signs Date Time Temp Pulse Resp B/P Pulse Ox O2 Delivery O2 Flow Rate FiO2 07/06/16 08:03 16 07/06/16 08:00 96.2 99 20 119/80 91 07/06/16 04:00 97.8 105 18 142/85 93 07/06/16 01:26 96 Nasal Cannula 2.00 07/06/16 00:51 110 93 07/06/16 00:00 100.0 113 20 132/68 90 07/05/16 20:11 91 07/05/16 20:00 97.1 98 20 141/66 95 07/05/16 15:30 96.2 77 20 128/62 93 07/05/16 11:50 98.9 84 20 121/58 93 I/O 07/05/16 07/05/16 07/05/16 07/06/16 07/06/16 07/06/16 07:00 15:00 23:00 07:00 15:00 23:00 Intake Total 985 ml 480 ml 1555 ml Output Total 1200 ml 600 ml 850 ml 1400 ml Balance -215 ml -120 ml -850 ml 155 ml Intake Oral 240 ml 480 ml IV Total 745 ml 1555 ml Output Urine Total 1200 ml 600 ml 850 ml 1400 ml # Bowel Movements 1 1 2 Result Diagram: 07/06/16 0733 07/06/16 0733 Imaging Last Impressions Chest X-Ray 07/06/16 0000 Signed Impressions: Service Date/Time: Wednesday, July 06, 2016 01:18 - CONCLUSION: No acute disease. David Aguilar MD Abdomen/Pelvis CT 07/03/16 0000 Signed Impressions: Service Date/Time: Sunday, July 03, 2016 20:08 - CONCLUSION: Slight decrease in enhancement of the right kidney relative to the left with some mild right perinephric stranding and mild dilatation of the right proximal and mid ureter. No definite calculus is identified. Differential diagnosis includes a right-sided pyelonephritis or possibly a mild obstructive uropathy secondary to a non-radiopaque calculus. Chad Tony MD Objective Remarks GENERAL: Patient lying down in bed. Appears comfortable. Alert and oriented 3. No change on exam. SKIN: Warm and dry.patient does appear rather flushed on exam. HEAD: Normocephalic. EYES: No scleral icterus. No injection or drainage. NECK: Supple, trachea midline. No JVD or lymphadenopathy. CARDIOVASCULAR: Regular rate and rhythm without murmurs, gallops, or rubs. RESPIRATORY: Breath sounds equal bilaterally. No accessory muscle use. GASTROINTESTINAL: Abdomen soft, non-tender, nondistended. MUSCULOSKELETAL: No cyanosis, or edema. BACK: Nontender without obvious deformity. No CVA tenderness. A/P Assessment and Plan === 07/06/16 Leukocytosis improving. Patient did have a temperature 100.0, however has likely sleep apnea. Had a cough which has resolved. Influenza testing negative. Repeat urinalysis improved. Discharge home on Cipro to complete 14 day course. She'll need a follow-up with primary care to go over results of urine culture, repeat basic labs. Patient conveys understanding. Discharge home. Sepsis. Leukocytosis. Tachycardia. Improving. -Pyelonephritis on CT abdomen. 2-Initially managed with ceftriaxone, however secondary to mild hydronephrosis , have started patient on Zosyn. -Repeat urine cultures ordered 07/05. Patient will need to follow with primary care to go over results and //Pyelonephritis Follow-up urine cultures. -2/. Due to hydronephrosis on CT abdomen. Consulted urology. Urology recommends treatment with by mouth antibiotics at discharge for at least 2 week course. -2. Repeat urinalysis. Renal insufficiency. Creatinine 1.2 on admission. Resolved.. Continue to monitor. Hypertension. Blood pressures acceptable. Hold blood pressure meds at home. All of her primary care. Prophylaxis. SCDs/teds. Received subcutaneous heparin Discharge Planning Charge home today. Follow-up primary care. Urine culture repeat pending. Patient will follow with primary care for this. Mata Patino MD Jul 06, 2016 09:58
--- NOTE | 2016-07-06 10:02 | HHI.DS ---
Discharge Summary Admission Date Jul 03, 2016 at 21:50 Discharge Date: Jul 06, 2016 Admitting Diagnosis pyelonephritis (1) Sepsis ICD Code: A41.9 (2) UTI (urinary tract infection) ICD Code: N39.0 (3) Renal insufficiency ICD Code: N28.9 (4) HTN (hypertension) ICD Code: I10 Procedures No invasive procedures Brief History - From Admission This is a 75-year-old female with a PMH of HTN, Hyperlipidemia and Asthma who is brought to the ER with complaints of right-sided back pain and dysuria x2 days. States symptoms similar to previous episodes of UTI. Denies fever, chills, nausea, vomiting or diarrhea. On arrival, BP 144/84, HR 101, O2 sat 98 % on RA, Afebrile. WBC 19.8. Creatinine 1.20, no previous/for comparison. UA with UTI. CT Abd/Pelvis w/ decreased enhancement of right kidney relative to the left with mild right perinephric stranding and mild dilatation of right proximal and mid ureter, likely pyelonephritis vs obstructive uropathy from non- radiopaque stone. S/p Blood Cultures, Zosyn IV in ER. CBC/BMP: 07/06/16 0733 07/06/16 0733 Significant Findings Laboratory Tests Test 07/04/16 07/05/16 07/05/16 07/06/16 05:00 14:55 15:47 02:14 White Blood Count 16.7 TH/MM3 11.3 TH/MM3 14.0 TH/MM3 (4.0-11.0) (4.0-11.0) (4.0-11.0) Neutrophils (%) (Auto) 84.5 % 80.6 % 85.1 % (16.0-70.0) (16.0-70.0) (16.0-70.0) Lymphocytes (%) (Auto) 6.1 % 5.1 % (9.0-44.0) (9.0-44.0) Monocytes (%) (Auto) 8.4 % (0.0-8.0) 9.1 % (0.0-8.0) 9.0 % (0.0-8.0) Neutrophils # (Auto) 14.1 TH/MM3 9.1 TH/MM3 12.0 TH/MM3 (1.8-7.7) (1.8-7.7) (1.8-7.7) Monocytes # (Auto) 1.4 TH/MM3 1.0 TH/MM3 1.3 TH/MM3 (0-0.9) (0-0.9) (0-0.9) Creatinine 1.03 MG/DL (0.50-1.00) Estimat Glomerular Filtration 52 ML/MIN (>89) 63 ML/MIN (>89) 65 ML/MIN (>89) Rate Calcium Level 8.3 MG/DL 8.0 MG/DL 8.0 MG/DL (8.5-10.1) (8.5-10.1) (8.5-10.1) Albumin 3.3 GM/DL (3.4-5.0) Urine Protein 30 mg/dL (NEG-TRACE) Urine Occult Blood TRACE (NEG) Urine Leukocyte Esterase MOD (NEG) Urine RBC 8 /hpf (0-3) Urine WBC 22 /hpf (0-5) Urine Mucus FEW /lpf (OCC) Red Blood Count 3.51 MIL/MM3 3.43 MIL/MM3 (4.00-5.30) (4.00-5.30) Hemoglobin 10.6 GM/DL 10.5 GM/DL (11.6-15.3) (11.6-15.3) Hematocrit 31.4 % 30.3 % (35.0-46.0) (35.0-46.0) Sodium Level 135 MEQ/L 135 MEQ/L (136-145) (136-145) Lymphocytes # (Auto) 0.7 TH/MM3 (1.0-4.8) Random Glucose 131 MG/DL (74-106) Test 07/06/16 07:33 White Blood Count 13.4 TH/MM3 (4.0-11.0) Red Blood Count 3.51 MIL/MM3 (4.00-5.30) Hemoglobin 10.5 GM/DL (11.6-15.3) Hematocrit 31.2 % (35.0-46.0) Neutrophils (%) (Auto) 84.5 % (16.0-70.0) Lymphocytes (%) (Auto) 5.7 % (9.0-44.0) Monocytes (%) (Auto) 9.3 % (0.0-8.0) Neutrophils # (Auto) 11.3 TH/MM3 (1.8-7.7) Lymphocytes # (Auto) 0.8 TH/MM3 (1.0-4.8) Monocytes # (Auto) 1.3 TH/MM3 (0-0.9) Carbon Dioxide Level 20.6 MEQ/L (21.0-32.0) Estimat Glomerular Filtration 65 ML/MIN (>89) Rate Calcium Level 8.1 MG/DL (8.5-10.1) Imaging Last Impressions Chest X-Ray 07/06/16 0000 Signed Impressions: Service Date/Time: Wednesday, July 06, 2016 01:18 - CONCLUSION: No acute disease. David Aguilar MD Abdomen/Pelvis CT 07/03/16 0000 Signed Impressions: Service Date/Time: Sunday, July 03, 2016 20:08 - CONCLUSION: Slight decrease in enhancement of the right kidney relative to the left with some mild right perinephric stranding and mild dilatation of the right proximal and mid ureter. No definite calculus is identified. Differential diagnosis includes a right-sided pyelonephritis or possibly a mild obstructive uropathy secondary to a non-radiopaque calculus. Chad Tony MD Hospital Course Patient was started on broad-spectrum antibiotics, fluids. Creatinine was found to be elevated 1.2. Improved during admission. CT abdomen that show right-sided pyelonephritis with small degree of hydronephrosis. Urine culture returned mixed isauro. Repeat urinalysis with only 22 white blood cells, and repeat culture still pending at the time of discharge. Urology was consulted, however flank pain resolved. Patient felt well on the day of discharge. For problem-based summary for most recent progress note, please see below. === 07/06/16 Leukocytosis improving. Patient did have a temperature 100.0, however has likely sleep apnea. Had a cough which has resolved. Influenza testing negative. Repeat urinalysis improved. Discharge home on Cipro to complete 14 day course. She'll need a follow-up with primary care to go over results of urine culture, repeat basic labs. Patient conveys understanding. Discharge home. Sepsis. Leukocytosis. Tachycardia. Improving. -Pyelonephritis on CT abdomen. 07/04-Initially managed with ceftriaxone, however secondary to mild hydronephrosis , have started patient on Zosyn. -Repeat urine cultures ordered 07/05. Patient will need to follow with primary care to go over results and //Pyelonephritis Follow-up urine cultures. -07/04. Due to hydronephrosis on CT abdomen. Consulted urology. Urology recommends treatment with by mouth antibiotics at discharge for at least 2 week course. -07/05. Repeat urinalysis. Renal insufficiency. Creatinine 1.2 on admission. Resolved.. Continue to monitor. Hypertension. Blood pressures acceptable. Hold blood pressure meds at home. All of her primary care. Prophylaxis. SCDs/teds. Received subcutaneous heparin Pt Condition on Discharge: Good Discharge Disposition: Discharge Home Discharge Time: > 30 minutes Discharge Instructions DIET: Follow Instructions for: Heart Healthy Diet Activities you can perform: Regular-No Restrictions Follow up Referrals: PCP Follow-up - 1 Week New Medications: Ciprofloxacin (Ciprofloxacin) 500 Mg Tab 500 MG PO BID Infection #20 Ref 0 TAB Continued Medications: Atorvastatin (Atorvastatin) 40 Mg Tab 40 MG PO HS Cholesterol Management #30 Ref 0 TAB Budesonide-Formoterol Inh (Symbicort Inh) 160-4.5 Mcg/Act Aero 1 PUFF INH Q12HR #1 Ref 0 INHALER Discontinued Medications: Losartan (Losartan) 50 Mg Tab 50 MG PO DAILY Blood Pressure Management #30 Ref 0 TAB Mata Patino MD Jul 06, 2016 10:02
[2016-07-06] MEDS ORDERED: FLUC150T PO (12:47)
[2016-07-08] MEDS ORDERED: PHARMACY ORDERED LAB XX ONE (08:45)
== END 2016-07-06 13:09 | disposition home or self-care (01) | DRG 872 ==
LOC: NEPC 18:18 → NEDA 21:50 → NEPHCDU 22:58 → HOCA 07-04 08:06
PROVIDERS: ADMIT Internal Medicine; ATTEND Internal Medicine
DX: A41.9 Sepsis, unspecified organism (principal); I10 Essential (primary) hypertension; N12 Tubulo-interstitial nephritis, not specified as acute or chronic; N13.6 Pyonephrosis; N28.9 Disorder of kidney and ureter, unspecified; E78.5 Hyperlipidemia, unspecified; G47.30 Sleep apnea, unspecified; J45.909 Unspecified asthma, uncomplicated; Z90.710 Acquired absence of both cervix and uterus
CPT/HCPCS: 71010; 74177; 80048; 80053; 81001; 83605; 85025; 87040; 87070; 87086; 87205; 87804; 94664; 96361; 96365; 96375; J0696; J1644; J2270; J2405; J2543; J3370; J7030; J7040; Q9967